=== PATIENT | male | born 1960 | race African-American/Black ===

== ENCOUNTER 2021-09-30 19:07 | Emergency (ER) | payer OTHER ==
[~2021-09-30] VITALS: Ht 182.9 cm; Wt 100.0 kg
[~2021-09-30 19:07] MED LIST: ASPI-1406 MT; ASPI-1406 PO; FURO-151 MT; FURO40TA5 PO; GABA-532 MT; INSU100I13 SQ; INSU100I28 SQ; METF-414 PO; METF-416 MT; POTA20TA82 MT
[2021-09-30] MEDS ORDERED: NITROGLYCERIN OINT 1GM/INCH UDPKT TD ONE (19:45)
[2021-09-30] MEDS ORDERED: FUROSEMIDE 40MG/4ML VIAL IVP ONE (19:45)
[2021-09-30] MEDS ORDERED: ASPIRIN 81MG TABLET PO ONE (19:45)
[2021-09-30 20:16] LABS: BASOPHILS % 0.6 % (0.0-2.0); EOSINOPHILS % 4.7 % (0.0-5.0); HEMATOCRIT. 40.7 % (42.0-52.0); HEMOGLOBIN. 13.5 g/dL (14.0-18.0); LYMPHOCYTES % 23.4 % (20.0-50.0); MEAN CORPUSCULAR HEMOGLOBIN 29.8 pg (28.0-32.0); MEAN CORPUSCULAR VOLUME 89.8 fL (80.0-94.0); MEAN PLATELET VOLUME 8.8 fl (7.4-10.4); MONOCYTES % 10.1 % (2.0-8.0); NEUTROPHILS % 61.2 % (40.0-76.0); PLATELET 175 x1000/uL (130-400); RED BLOOD CELL COUNT 4.54 mill/uL (4.7-6.1); RED CELL DISTRIBUTION WIDTH 17.5 % (11.6-14.6)
[2021-09-30 20:24] LABS: CHLORIDE 110 mEq/L (98-107)
[2021-10-01] MEDS ORDERED: GABA-532 MT (00:15)
[2021-10-01] MEDS ORDERED: GABAPENTIN 300MG CAPSULE PO ONE (00:15)
[2021-10-01] MEDS ORDERED: ALBU6.7H9 INH (00:15)
[2021-10-01 04:09] VITALS: BP 122/76
== END 2021-10-01 04:10 | disposition home or self-care (01) ==
LOC: ER 19:07
DX: R07.9 Chest pain, unspecified (principal); G62.9 Polyneuropathy, unspecified; F17.210 Nicotine dependence, cigarettes, uncomplicated; I11.0 Hypertensive heart disease with heart failure; J44.9 Chronic obstructive pulmonary disease, unspecified; I50.9 Heart failure, unspecified; E11.9 Type 2 diabetes mellitus without complications; Z79.4 Long term (current) use of insulin; Z79.82 Long term (current) use of aspirin
CPT/HCPCS: 36415; 71045; 80053; 83690; 83880; 84484; 85025; 93005; 96374; 99285; J1940

== ENCOUNTER 2022-03-06 06:52 | Emergency (ER) | payer MEDICAID, OTHER ==
[~2022-03-06] VITALS: Ht 185.4 cm; Wt 141.0 kg
[~2022-03-06 06:52] MED LIST changes: +ALBU6.7H9 INH; +POTA-205 MT; -POTA20TA82 MT
[2022-03-06] MEDS ORDERED: ONDANSETRON HCL 4MG/2ML INJ IV STA (07:05)
[2022-03-06] MEDS ORDERED: MORPHINE SULFATE 4 MG/ML CPJ (NOT FOR IM USE) IV STA (07:05)
[2022-03-06 08:01] LABS: BASOPHILS % 0.3 % (0.0-2.0); EOSINOPHILS % 2.8 % (0.0-5.0); HEMATOCRIT. 45.2 % (42.0-52.0); HEMOGLOBIN. 14.8 g/dL (14.0-18.0); LYMPHOCYTES % 17.6 % (20.0-50.0); MEAN CORPUSCULAR VOLUME 88.4 fL (80.0-94.0); MEAN PLATELET VOLUME 8.8 fl (7.4-10.4); MONOCYTES % 8.3 % (2.0-8.0); PLATELET 192 x1000/uL (130-400); RED BLOOD CELL COUNT 5.12 mill/uL (4.7-6.1); RED CELL DISTRIBUTION WIDTH 18.2 % (11.6-14.6)
[2022-03-06 08:08] LABS: CHLORIDE 108 mEq/L (98-107)
[2022-03-06 13:30] VITALS: BP 133/79
== END 2022-03-06 13:57 | disposition home or self-care (01) ==
LOC: ER 07:00
DX: R07.89 Other chest pain (principal); E11.65 Type 2 diabetes mellitus with hyperglycemia; F14.10 Cocaine abuse, uncomplicated; J44.1 Chronic obstructive pulmonary disease with (acute) exacerbation; I11.0 Hypertensive heart disease with heart failure; I50.9 Heart failure, unspecified; Z79.899 Other long term (current) drug therapy; Z79.4 Long term (current) use of insulin; Z98.890 Other specified postprocedural states
CPT/HCPCS: 36415; 71045; 80053; 83880; 84484; 85025; 93005; 96374; 96375; 99285; J2270; J2405

== ENCOUNTER 2022-06-30 14:48 | Inpatient (IN) | payer OTHER ==
[~2022-06-30] VITALS: Ht 190.5 cm; Wt 149.2 kg
[~2022-06-30 14:48] MED LIST changes: +ALBU6.7H3 INH; -ALBU6.7H9 INH; +AMOX1TAB16 MT; -ASPI-1406 MT; -FURO-151 MT; -METF-416 MT; +TAMS-11 MT
[2022-06-30] MEDS ORDERED: MORPHINE SULFATE 4 MG/ML CPJ (NOT FOR IM USE) IV ONE (15:45)
[2022-06-30] MEDS ORDERED: ASPIRIN 325MG TABLET PO ONE (15:45)
[2022-06-30 16:03] LABS: BASOPHILS % 0.7 % (0.0-2.0); EOSINOPHILS % 6.1 % (0.0-5.0); HEMATOCRIT. 46.8 % (42.0-52.0); HEMOGLOBIN. 15.5 g/dL (14.0-18.0); MEAN CORPUSCULAR HEMOGLOBIN 29.7 pg (28.0-32.0); MEAN CORPUSCULAR VOLUME 89.8 fL (80.0-94.0); MEAN PLATELET VOLUME 8.5 fl (7.4-10.4); MONOCYTES % 14.5 % (2.0-8.0); NEUTROPHILS % 51.7 % (40.0-76.0); PLATELET 153 x1000/uL (130-400); RED BLOOD CELL COUNT 5.21 mill/uL (4.7-6.1); RED CELL DISTRIBUTION WIDTH 19.2 % (11.6-14.6)
[2022-06-30 16:08] LABS: CHLORIDE 108 mEq/L (98-107)
[2022-06-30] MEDS ORDERED: AMOXICILLIN/POTASSIUM CLAVULANATE 875/125MG TAB PO ONE (16:30)
[2022-06-30] MEDS ORDERED: TETANUS, DIPHTHERIA, PERTUSSIS VAC/PF 0.5ML (>10YR OLD) IM ONE ×2 (16:30→18:25)
[2022-06-30] MEDS ORDERED: DOCUSATE SODIUM 100MG CAPSULE PO PRN (18:15)
[2022-06-30] MEDS ORDERED: ACETAMINOPHEN 325MG TABLET PO PRN ×2 (18:15)
[2022-06-30] MEDS ORDERED: NALOXONE HCL 0.4MG/ML VIAL IV PRN (18:15)
[2022-06-30] MEDS ORDERED: ONDANSETRON HCL 4MG/2ML INJ IV PRN (18:15)
[2022-06-30] MEDS ORDERED: MORPHINE SULFATE 4 MG/ML CPJ (NOT FOR IM USE) IV SCH (18:15)
[2022-06-30] MEDS ORDERED: IPRATROPIUM/ALBUTEROL 0.5-3(2.5)MG/3ML NEB HHN PRN (18:15)
[2022-06-30] MEDS ORDERED: AMOXICILLIN/POTASSIUM CLAVULANATE 875/125MG TAB PO SCH ×2 (18:15→18:16)
[2022-06-30] MEDS ORDERED: CLONIDINE 0.1MG TABLET PO PRN (18:15)
[2022-06-30] MEDS ORDERED: AMPICILLIN SOD/SULBACTAM NA 3 G in SODIUM CHLORIDE 0.9% 100 ML IV SCH (18:30)
[2022-07-01 01:00] VITALS: BP 111/86
[2022-07-01] MEDS: AMPICILLIN SOD/SULBACTAM NA 3 G in SODIUM CHLORIDE 0.9% 100 ML IV SCH ×3 (03:14→18:05)
[2022-07-01 04:00] VITALS: BP 139/59
[2022-07-01 04:32] LABS: *AMPHETAMINES SCREEN URINE NEGATIVE (NEGATIVE); *BARBITURATES SCREEN URINE NEGATIVE (NEGATIVE); *BENZODIAZEPINES SCREEN URINE NEGATIVE (NEGATIVE); *COCAINE SCREEN URINE PRESUMTIVE POSITIVE (NEGATIVE); CANNABINOID URINE SCREEN NEGATIVE (NEGATIVE); METHADONE URINE SCREEN NEGATIVE (NEGATIVE); OPIATES URINE SCREEN PRESUMTIVE POSITIVE (NEGATIVE); PHENCYCLIDINE URINE SCREEN NEGATIVE (NEGATIVE)
[2022-07-01 06:28] LABS: BASOPHILS % 0.8 % (0.0-2.0); EOSINOPHILS % 5.8 % (0.0-5.0); HEMATOCRIT. 44.4 % (42.0-52.0); HEMOGLOBIN. 14.6 g/dL (14.0-18.0); LYMPHOCYTES % 24.8 % (20.0-50.0); MEAN CORPUSCULAR HEMOGLOBIN 29.4 pg (28.0-32.0); MEAN CORPUSCULAR VOLUME 89.2 fL (80.0-94.0); MEAN PLATELET VOLUME 8.9 fl (7.4-10.4); MONOCYTES % 14.7 % (2.0-8.0); NEUTROPHILS % 53.9 % (40.0-76.0); PLATELET 149 x1000/uL (130-400); RED BLOOD CELL COUNT 4.98 mill/uL (4.7-6.1); RED CELL DISTRIBUTION WIDTH 18.7 % (11.6-14.6)
[2022-07-01 06:43] LABS: CHLORIDE 110 mEq/L (98-107)
[2022-07-01 08:00] VITALS: BP 110/72
[2022-07-01] MEDS: HYDROCODONE/ACETAMINOPHEN 5/325MG TABLET PO PRN ×3 (10:58→19:18)
[2022-07-01 12:00] VITALS: BP 126/76
[2022-07-01] MEDS ORDERED: IPRATROPIUM BROMIDE (0.02%) 0.5MG/2.5ML NEB HHN PRN (12:45)
[2022-07-01] MEDS ORDERED: ALBUTEROL (0.083%) 2.5MG/3ML NEB HHN PRN (12:45)
[2022-07-01] MEDS ORDERED: DEXTROSE 50% WATER 50ML SYRINGE IV PRN (14:15)
[2022-07-01 16:00] VITALS: BP 136/91
[2022-07-01] MEDS: BLOOD SUGAR DIAGNOSTIC STRIP TEST SCH ×2 (17:40→20:51)
[2022-07-01] MEDS: INSULIN LISPRO 100 UNITS/ML SUBCUT SCH ×2 (18:13→20:58)
[2022-07-01 20:00] VITALS: BP 156/100
[2022-07-02] VITALS: BP 147/79
[2022-07-02] MEDS: AMPICILLIN SOD/SULBACTAM NA 3 G in SODIUM CHLORIDE 0.9% 100 ML IV SCH ×4 (01:30→18:20)
[2022-07-02 04:00] VITALS: BP 127/70
[2022-07-02] MEDS: HYDROCODONE/ACETAMINOPHEN 5/325MG TABLET PO PRN ×2 (05:40→16:53)
[2022-07-02 08:00] VITALS: BP 120/71
[2022-07-02] MEDS: INSULIN LISPRO 100 UNITS/ML SUBCUT SCH ×4 (08:02→21:00)
[2022-07-02] MEDS: BLOOD SUGAR DIAGNOSTIC STRIP TEST SCH ×4 (08:02→21:17)
[2022-07-02] MEDS: ENOXAPARIN 40MG/0.4ML SYR SUBCUT SCH (09:29)
[2022-07-02 12:00] VITALS: BP 111/71
[2022-07-02 16:00] VITALS: BP 122/74
[2022-07-02] MEDS: LORAZEPAM 0.5MG TABLET PO PRN ×2 (19:46→23:50)
[2022-07-02 20:00] VITALS: BP 118/74
[2022-07-03] VITALS: BP 121/70
[2022-07-03] MEDS: ENOXAPARIN 40MG/0.4ML SYR SUBCUT SCH ×2 (00:05→09:17)
[2022-07-03] MEDS: AMPICILLIN SOD/SULBACTAM NA 3 G in SODIUM CHLORIDE 0.9% 100 ML IV SCH ×3 (01:10→11:39)
[2022-07-03] MEDS: HYDROCODONE/ACETAMINOPHEN 5/325MG TABLET PO PRN ×2 (02:04→09:29)
[2022-07-03] MEDS: LORAZEPAM 0.5MG TABLET PO PRN (03:25)
[2022-07-03 04:00] VITALS: BP 134/77
[2022-07-03] MEDS: BLOOD SUGAR DIAGNOSTIC STRIP TEST SCH ×2 (06:36→11:40)
[2022-07-03 08:00] VITALS: BP 135/78
[2022-07-03] MEDS: INSULIN LISPRO 100 UNITS/ML SUBCUT SCH ×2 (08:10→12:13)
[2022-07-03 09:27] VITALS: BP 135/78
[2022-07-03 12:00] VITALS: BP 140/91
[2022-07-03] MEDS ORDERED: AMOX1TAB16 MT (12:22)
[2022-07-03 14:03] VITALS: BP 140/91
== END 2022-07-03 18:18 | disposition home or self-care (01) | DRG 203 ==
LOC: ER 14:48 → MICUSO 17:14 → EDBEDREQTM 17:23 → EDBEDREQ 17:23 → 7WST 07-01 00:20
PROVIDERS: ADMIT Internal Medicine; ATTEND Internal Medicine
DX: R07.89 Other chest pain (principal); I50.30 Unspecified diastolic (congestive) heart failure; I11.0 Hypertensive heart disease with heart failure; E11.9 Type 2 diabetes mellitus without complications; E78.00 Pure hypercholesterolemia, unspecified; S20.371A Other superficial bite of right front wall of thorax, initial encounter; Y04.1XXA Assault by human bite, initial encounter; Z83.3 Family history of diabetes mellitus; Z79.899 Other long term (current) drug therapy; Z82.49 Family history of ischemic heart disease and other diseases of the circulatory system; Y93.89 Activity, other specified; Y92.89 Other specified places as the place of occurrence of the external cause; Y99.8 Other external cause status; F14.988 Cocaine use, unspecified with other cocaine-induced disorder
CPT/HCPCS: 36415; 71045; 80048; 80053; 80305; 82962; 83036; 83880; 84145; 84484; 85025; 90715; 93005; 93970; 99285; J0295; J1650; J1815; J2270; J7050

== ENCOUNTER 2022-08-03 13:01 | Emergency (ER) | payer MEDICAID, OTHER ==
[~2022-08-03] VITALS: Ht 180.3 cm; Wt 120.0 kg
[2022-08-03 13:10] VITALS: BP 133/79
[2022-08-03 15:19] LABS: HEMATOCRIT. 42.4 % (42.0-52.0); HEMOGLOBIN. 13.9 g/dL (14.0-18.0); MEAN CORPUSCULAR HEMOGLOBIN 28.9 pg (28.0-32.0); MEAN CORPUSCULAR VOLUME 88.1 fL (80.0-94.0); MEAN PLATELET VOLUME 8.7 fl (7.4-10.4); PLATELET 211 x1000/uL (130-400); RED BLOOD CELL COUNT 4.81 mill/uL (4.7-6.1); RED CELL DISTRIBUTION WIDTH 17.5 % (11.6-14.6)
[2022-08-03 15:24] LABS: CHLORIDE 109 mEq/L (98-107)
[2022-08-03] MEDS ORDERED: GABA-532 PO ×2 (17:26→17:34)
[2022-08-03] MEDS ORDERED: INSU100I13 SQ (17:40)
[2022-08-03] MEDS ORDERED: ASPI-1406 PO (17:40)
[2022-08-03] MEDS ORDERED: TAMS-11 MT (17:40)
[2022-08-03] MEDS ORDERED: FURO40TA5 PO (17:40)
[2022-08-03] MEDS ORDERED: INSU100I28 SQ (17:40)
[2022-08-03] MEDS ORDERED: ALBU6.7H3 INH (17:40)
[2022-08-03 18:09] LABS: PLATELET ESTIMATE NORMAL
== END 2022-08-03 21:28 | disposition home or self-care (01) ==
LOC: ER 13:01
DX: R07.89 Other chest pain (principal); E11.42 Type 2 diabetes mellitus with diabetic polyneuropathy; I11.0 Hypertensive heart disease with heart failure; I50.9 Heart failure, unspecified; J44.9 Chronic obstructive pulmonary disease, unspecified; E78.00 Pure hypercholesterolemia, unspecified; F14.10 Cocaine abuse, uncomplicated; Z76.0 Encounter for issue of repeat prescription; Z79.4 Long term (current) use of insulin; Z79.82 Long term (current) use of aspirin
CPT/HCPCS: 36415; 71045; 80053; 83880; 84484; 85025; 93005; 99285

== ENCOUNTER 2024-01-03 21:11 | Emergency (ER) | payer MEDICAID, OTHER ==
[~2024-01-03] VITALS: Ht 188 cm; Wt 147.0 kg
[~2024-01-03 21:11] MED LIST changes: -AMOX1TAB16 MT; +GABA-532 PO
[2024-01-03 21:18] VITALS: TEMP 98.1; O2SAT 95
[2024-01-03 23:55] LABS: HEMATOCRIT. 40.2 % (42.0-52.0); HEMOGLOBIN. 13.1 g/dL (14.0-18.0); MEAN CORPUSCULAR HEMOGLOBIN 29.1 pg (28.0-32.0); MEAN CORPUSCULAR HGB CONC 32.6 g/dL (31.0-37.0); MEAN CORPUSCULAR VOLUME 89.4 fL (80.0-94.0); MEAN PLATELET VOLUME 8.9 fl (7.4-10.4); PLATELET 192 x1000/uL (130-400); RED CELL DISTRIBUTION WIDTH 17.7 % (11.6-14.6); WHITE BLOOD COUNT 5.1 x1000/uL (4.5-11.0)
[2024-01-04 00:06] LABS: DIFFERENTIAL COMMENT 1
[2024-01-04] MEDS: ACETAMINOPHEN 1000MG/100ML 100 ML IV ONE (00:09)
[2024-01-04 00:12] LABS: CHLORIDE 110 mEq/L (98-107); POTASSIUM 3.8 mEq/L (3.5-5.1); SODIUM 141 mEq/L (136-145)
[2024-01-04 00:13] LABS: CARBON DIOXIDE 22 mEq/L (21-32)
[2024-01-04 00:14] LABS: CALCIUM 8.8 mg/dL (8.7-10.4)
[2024-01-04 00:18] LABS: CREATININE 0.9 mg/dL (0.6-1.3); GLUCOSE 125 mg/dL (70-105); UREA NITROGEN BLOOD 18 mg/dL (9-23)
[2024-01-04 00:22] LABS: TROPONIN I HIGH SENSITIVITY 29 ng/L (3.0-53)
[2024-01-04 02:26] LABS: TROPONIN I HIGH SENSITIVITY 30 ng/L (3.0-53)
[2024-01-04] MEDS ORDERED: ACET-2708 MT (02:50)
[2024-01-04] MEDS ORDERED: ONDA4TAB50 MT (02:50)
[2024-01-04 03:15] VITALS: BP 145/76; PULSE 70; RESP 13
[2024-01-04 09:54] LABS: ANISOCYTOSIS 1+; PLATELET ESTIMATE NORMAL
== END 2024-01-04 03:24 | disposition home or self-care (01) ==
LOC: ER 21:11
DX: R07.89 Other chest pain (principal); I11.0 Hypertensive heart disease with heart failure; I50.9 Heart failure, unspecified; J44.9 Chronic obstructive pulmonary disease, unspecified; F14.10 Cocaine abuse, uncomplicated; Z79.899 Other long term (current) drug therapy; W18.39XA Other fall on same level, initial encounter; Y93.89 Activity, other specified; Y92.89 Other specified places as the place of occurrence of the external cause; Y99.8 Other external cause status
CPT/HCPCS: 36415; 71045; 71250; 74176; 80048; 83880; 84484; 85025; 93005; 96365; 99285; J0131

== ENCOUNTER 2024-01-24 21:50 | Emergency (ER) | payer MEDICAID, OTHER ==
[~2024-01-24] VITALS: Ht 188 cm; Wt 155.0 kg
[~2024-01-24 21:50] MED LIST changes: +ACET-2708 MT; +ONDA4TAB50 MT
[2024-01-24 22:02] VITALS: O2SAT 96
[2024-01-24] MEDS: CLINDAMYCIN PHOSPHATE 600MG/4ML VIAL IM ONE (22:30)
[2024-01-24] MEDS: HYDROCODONE/ACETAMINOPHEN 10/325MG TABLET PO ONE (22:30)
[2024-01-25] MEDS ORDERED: MUPI1OIN4 TP (00:23)
[2024-01-25] MEDS ORDERED: CLIN-194 MT (00:23)
[2024-01-25] MEDS ORDERED: ACET-2708 MT (00:24)
[2024-01-25 01:20] VITALS: BP 145/76; PULSE 84; RESP 16; TEMP 98.4
== END 2024-01-25 01:20 | disposition home or self-care (01) ==
LOC: ER 21:50
DX: L02.412 Cutaneous abscess of left axilla (principal); I11.0 Hypertensive heart disease with heart failure; I50.9 Heart failure, unspecified; J44.9 Chronic obstructive pulmonary disease, unspecified; E11.9 Type 2 diabetes mellitus without complications; Z79.899 Other long term (current) drug therapy; Z79.2 Long term (current) use of antibiotics
CPT/HCPCS: 99283; 73560; 96372; J3490

== ENCOUNTER 2024-03-13 19:59 | Emergency (ER) | payer OTHER ==
[~2024-03-13] VITALS: Ht 188 cm; Wt 147.0 kg
[~2024-03-13 19:59] MED LIST changes: +CLIN-194 MT; +MUPI1OIN4 TP
[2024-03-13 20:11] VITALS: O2SAT 95
[2024-03-13] MEDS ORDERED: ACETAMINOPHEN 325MG TABLET PO ONE (20:15)
[2024-03-13 22:00] VITALS: BP 151/79; PULSE 78; RESP 17; TEMP 36.89184; O2SAT 97
== END 2024-03-13 22:40 | disposition home or self-care (01) ==
LOC: ER 19:59
DX: S09.90XA Unspecified injury of head, initial encounter (principal); I11.0 Hypertensive heart disease with heart failure; I50.9 Heart failure, unspecified; E11.9 Type 2 diabetes mellitus without complications; I48.91 Unspecified atrial fibrillation; Z79.899 Other long term (current) drug therapy; Y08.89XA Assault by other specified means, initial encounter; Y93.89 Activity, other specified; Y92.89 Other specified places as the place of occurrence of the external cause; Y99.8 Other external cause status
CPT/HCPCS: 99284

== ENCOUNTER 2025-04-05 02:12 | Inpatient (IN) | payer BC, MEDICAID ==
[~2025-04-05] VITALS: Ht 188 cm; Wt 148.8 kg
[~2025-04-05 02:12] MED LIST changes: +ALBU90AE INH; +ATOR40TA70 MT; +CARV12.545 MT; -CLIN-194 MT; +FURO-151 MT; +GABA-1180 MT; +GABA-1180 PO; -GABA-532 MT; -GABA-532 PO; +LOSA50TA41 MT; -MUPI1OIN4 TP; +SULF1TAB48 MT; -TAMS-11 MT; +TAMS-54 MT
[2025-04-05 02:19] VITALS: O2SAT 95
[2025-04-05] MEDS: ASPIRIN 325MG TABLET PO ONE (03:17)
[2025-04-05 03:26] LABS: BASOPHILS % 0.9 % (0.0-2.0); EOSINOPHILS % 4.7 % (0.0-5.0); HEMATOCRIT. 45.6 % (42.0-52.0); HEMOGLOBIN. 15.0 g/dL (14.0-18.0); LYMPHOCYTES % 28.3 % (20.0-50.0); MEAN PLATELET VOLUME 9.0 fl (7.4-10.4); MONOCYTES % 7.4 % (2.0-8.0); NEUTROPHILS % 58.7 % (40.0-76.0); PLATELET 166 x1000/uL (130-400); RED BLOOD CELL COUNT 5.10 mill/uL (4.7-6.1); RED CELL DISTRIBUTION WIDTH 16.3 % (11.6-14.6)
[2025-04-05 03:40] LABS: CREATININE 1.1 mg/dL (0.6-1.3)
[2025-04-05 03:41] LABS: UREA NITROGEN BLOOD 17 mg/dL (9-23)
[2025-04-05 03:57] LABS: TROPONIN I HIGH SENSITIVITY 55 ng/L (3.0-53)
[2025-04-05] MEDS: TETANUS, DIPHTHERIA, PERTUSSIS VAC/PF 0.5ML (>10YR OLD) IM ONE (04:12)
[2025-04-05] MEDS ORDERED: ACETAMINOPHEN 325MG TABLET PO PRN (05:00)
[2025-04-05] MEDS ORDERED: HYDRALAZINE 20MG/ML VIAL IV PRN (05:00)
[2025-04-05] MEDS ORDERED: DOCUSATE SODIUM 100MG CAPSULE PO PRN (05:00)
[2025-04-05] MEDS ORDERED: GUAIFENESIN 200MG/10ML SUGAR FREE UDC PO PRN (05:00)
[2025-04-05] MEDS ORDERED: IPRATROPIUM/ALBUTEROL 0.5-3(2.5)MG/3ML NEB HHN PRN (05:00)
[2025-04-05] MEDS ORDERED: DEXTROSE 50% WATER 50ML SYRINGE IV PRN (05:00)
[2025-04-05 06:00] LABS: TROPONIN I HIGH SENSITIVITY 56 ng/L (3.0-53)
[2025-04-05] MEDS ORDERED: LORAZEPAM 1MG TABLET PO PRN (06:15)
[2025-04-05] MEDS ORDERED: NITROGLYCERIN 0.4MG TABLET SL SL PRN (06:15)
[2025-04-05] MEDS: FUROSEMIDE 40MG/4ML VIAL IV SCH (07:52)
[2025-04-05] MEDS: INSULIN LISPRO 100 UNITS/ML SUBCUT SCH (08:34)
[2025-04-05] MEDS: BLOOD SUGAR DIAGNOSTIC STRIP TEST SCH (09:00)
[2025-04-05 09:29] LABS: PHOSPHORUS 3.7 mg/dL (2.5-4.9)
[2025-04-05 09:35] LABS: TROPONIN I HIGH SENSITIVITY 54 ng/L (3.0-53)
[2025-04-05] MEDS: LOSARTAN 50 MG TABLET PO SCH (09:40)
[2025-04-05] MEDS: ENOXAPARIN 40MG/0.4ML SYR SUBCUT SCH (09:42)
[2025-04-05] MEDS: TAMSULOSIN HCL 0.4MG SR CAPSULE PO SCH (09:52)
[2025-04-05] MEDS ORDERED: INSULIN GLARGINE 100 UNITS/ML SUBCUT SCH (10:00)
[2025-04-05 10:20] VITALS: BP 137/81; PULSE 82; RESP 18; TEMP 36.0288
[2025-04-05] MEDS: INSULIN GLARGINE 100 UNITS/ML SUBCUT SCH (11:26)
[2025-04-05 12:30] VITALS: BP 136/82; PULSE 82; RESP 18; TEMP 36.6; O2SAT 96
[2025-04-05 16:15] VITALS: BP 140/78; PULSE 76; RESP 18; TEMP 36.9; O2SAT 96
[2025-04-05] MEDS: GABAPENTIN 300MG CAPSULE PO SCH ×2 (18:23→21:26)
[2025-04-05 20:00] VITALS: BP 134/78; PULSE 78; RESP 18; TEMP 36.1
[2025-04-05] MEDS: FAMOTIDINE 20MG TABLET PO SCH (21:26)
[2025-04-05] MEDS: ATORVASTATIN CALCIUM 40MG TABLET PO SCH (21:26)
[2025-04-05 22:55] LABS: CREATINE KINASE MB FRACTION 4.2 ng/mL (0.5-3.6)
[2025-04-05 22:56] LABS: TROPONIN I HIGH SENSITIVITY 37.0 ng/L (3.0-53)
[2025-04-06] VITALS: BP 123/72; PULSE 72; RESP 18; TEMP 36.4
[2025-04-06 04:00] VITALS: BP 141/75; PULSE 74; RESP 18; TEMP 37.1
[2025-04-06 08:00] VITALS: BP 129/82; PULSE 80; TEMP 36.3; O2SAT 93
[2025-04-06 09:12] LABS: BASOPHILS % 0.7 % (0.0-2.0); EOSINOPHILS % 4.6 % (0.0-5.0); HEMATOCRIT. 47.4 % (42.0-52.0); HEMOGLOBIN. 15.2 g/dL (14.0-18.0); LYMPHOCYTES % 29.0 % (20.0-50.0); MEAN PLATELET VOLUME 9.2 fl (7.4-10.4); MONOCYTES % 11.1 % (2.0-8.0); NEUTROPHILS % 54.6 % (40.0-76.0); PLATELET 161 x1000/uL (130-400); RED BLOOD CELL COUNT 5.25 mill/uL (4.7-6.1); RED CELL DISTRIBUTION WIDTH 16.4 % (11.6-14.6)
[2025-04-06 09:31] LABS: CREATININE 1.1 mg/dL (0.6-1.3)
[2025-04-06 09:32] LABS: LDL CHOLESTEROL 152 mg/dL (5-100); TRIGLYCERIDE 154 mg/dL (0-150); UREA NITROGEN BLOOD 19 mg/dL (9-23)
[2025-04-06] MEDS: ASPIRIN 81MG EC TABLET PO SCH (10:06)
[2025-04-06 12:00] VITALS: BP 152/83; PULSE 62; RESP 20; TEMP 36.5; O2SAT 93
[2025-04-06 16:00] VITALS: BP 118/80; PULSE 94; RESP 20; TEMP 36.1; O2SAT 94
[2025-04-06 20:00] VITALS: BP 96/47; PULSE 98; RESP 19; TEMP 36.3; O2SAT 95
[2025-04-06] MEDS: ACETAMINOPHEN 325MG TABLET PO PRN (21:02)
[2025-04-07] VITALS: BP 101/55; PULSE 93; RESP 18; TEMP 36.3; O2SAT 91
[2025-04-07] MEDS: GABAPENTIN 300MG CAPSULE PO SCH (02:04)
[2025-04-07 04:00] VITALS: BP 129/56; PULSE 59; RESP 18; TEMP 36.6; O2SAT 93
[2025-04-07 08:01] VITALS: BP 110/59; PULSE 70; RESP 20; TEMP 36.7; O2SAT 95
[2025-04-07 12:00] VITALS: BP 90/51; PULSE 71; RESP 19; TEMP 36.5; O2SAT 97
[2025-04-07] MEDS: ONDANSETRON HCL 4MG/2ML INJ IV PRN (15:50)
[2025-04-07 16:00] VITALS: BP 120/92; PULSE 70; RESP 20; TEMP 36.6; O2SAT 100
[2025-04-07 20:00] VITALS: BP 93/56; PULSE 87; RESP 19; TEMP 36.7; O2SAT 90
[2025-04-08] VITALS: BP 98/47; PULSE 76; RESP 20; TEMP 36.7; O2SAT 93
[2025-04-08 04:00] VITALS: BP 130/58; PULSE 74; RESP 20; TEMP 36.3; O2SAT 94
[2025-04-08 08:00] VITALS: BP 112/85; PULSE 66; RESP 18; TEMP 36.7; O2SAT 97
[2025-04-08 12:00] VITALS: BP 104/68; PULSE 86; RESP 18; TEMP 36.6; O2SAT 92
[2025-04-08 13:19] VITALS: BP 104/68; PULSE 86; RESP 18; TEMP 97.9
== END 2025-04-08 14:55 | disposition home or self-care (01) | DRG 917 ==
LOC: ER 02:12 → 8WST 04:24 → EDBEDREQ 04:39 → EDBEDREQTM 04:39
PROVIDERS: ADMIT Internal Medicine; ATTEND Internal Medicine
DX: T40.5X1A Poisoning by cocaine, accidental (unintentional), initial encounter (principal); I21.A1 Myocardial infarction type 2; I50.23 Acute on chronic systolic (congestive) heart failure; Z68.41 Body mass index [BMI] 40.0-44.9, adult; I11.0 Hypertensive heart disease with heart failure; E11.9 Type 2 diabetes mellitus without complications; S91.312A Laceration without foreign body, left foot, initial encounter; J44.9 Chronic obstructive pulmonary disease, unspecified; E66.9 Obesity, unspecified; N40.0 Benign prostatic hyperplasia without lower urinary tract symptoms; I48.91 Unspecified atrial fibrillation; I34.0 Nonrheumatic mitral (valve) insufficiency; Z96.641 Presence of right artificial hip joint; W26.0XXA Contact with knife, initial encounter; Z83.3 Family history of diabetes mellitus; Z82.49 Family history of ischemic heart disease and other diseases of the circulatory system; Y92.89 Other specified places as the place of occurrence of the external cause; Z87.891 Personal history of nicotine dependence; Z86.73 Personal history of transient ischemic attack (TIA), and cerebral infarction without residual deficits; Y93.G3 Activity, cooking and baking; Z79.4 Long term (current) use of insulin; Z79.82 Long term (current) use of aspirin; Z79.899 Other long term (current) drug therapy; Z91.148 Patient's other noncompliance with medication regimen for other reason; F14.188 Cocaine abuse with other cocaine-induced disorder
CPT/HCPCS: 36415; 71045; 73630; 80048; 80061; 82550; 82553; 82962; 83036; 83735; 83880; 84100; 84443; 84484; 85025; 85379; 90471; 90715; 93005; 93971; 99285; A4606; J1650; J1815; J1938; J2405